=== PATIENT | female | born 1985 | race Caucasian/White ===

== ENCOUNTER → 2019-08-09 | Outpatient (REF) | payer OTHER ==
[2019-08-09 13:12] LABS: BASO % 0.7 % (0.0-1.0); EOS # 0.2 10^3/uL (0.0-0.5); HEMATOCRIT 35.5 % (36.0-47.0); HEMOGLOBIN 11.9 g/dl (12.0-15.5); LYMPH # 1.2 10^3/uL (1.5-5.0); LYMPH % 20.5 % (24.0-44.0); MEAN CORPUSCULAR HEMOGLOBIN 29.5 pg (27.0-33.0); MEAN CORPUSCULAR HGB CONC 33.5 g/dl (32.0-36.5); MEAN CORPUSCULAR VOLUME 88.1 fl (80.0-96.0); MONO # 0.4 10^3/uL (0.0-0.8); MONO % 7.7 % (0.0-5.0); NEUTROPHILS # 3.8 10^3/uL (1.5-8.5); NEUTROPHILS % 67.9 % (36.0-66.0); PLATELET COUNT, AUTOMATED 205 10^3/uL (150-450); RED BLOOD COUNT 4.03 10^6/uL (4.00-5.40); WHITE BLOOD COUNT 5.6 10^3/uL (4.0-10.0)
[2019-08-09 13:34] LABS: TOTAL PROTEIN,RANDOM URINE 19.6 MG/DL (0.0-12.0)
[2019-08-09 13:36] LABS: ALBUMIN 4.2 GM/DL (3.2-5.2); ALT/SGPT 35 U/L (12-78); BILIRUBIN,TOTAL 0.4 MG/DL (0.2-1.0); BLOOD UREA NITROGEN 15 MG/DL (7-18); C REACTIVE PROTEIN QUANTITATIV < 0.30 MG/DL (0.00-0.30); CALCIUM LEVEL 8.7 MG/DL (8.5-10.1); CARBON DIOXIDE LEVEL 30 MEQ/L (21-32); CHLORIDE LEVEL 106 MEQ/L (98-107); COMPLEMENT C3 83 MG/DL (90-180); COMPLEMENT C4 18 MG/DL (10-40); CREATININE FOR GFR 0.71 MG/DL (0.55-1.30); GLOMERULAR FILTRATION RATE > 60.0 (>60); GLUCOSE, FASTING 77 MG/DL (70-100); POTASSIUM SERUM 4.3 MEQ/L (3.5-5.1); SODIUM LEVEL 140 MEQ/L (136-145); TOTAL PROTEIN 7.2 GM/DL (6.4-8.2)
[2019-08-09 13:58] LABS: ERYTHROCYTE SEDIMENTATION RATE 10 mm/hr (0-20)
== END ==
LOC: M SFHCRHEU 11:19
PROVIDERS: ATTEND Internal Medicine
DX: M32.14 Glomerular disease in systemic lupus erythematosus (principal)

== ENCOUNTER → 2020-08-01 | Outpatient (REF) | payer OTHER ==
[2020-08-01 13:30] LABS: BASO # 0.1 10^3/uL (0.0-0.2); BASO % 1.3 % (0.0-1.0); EOS # 0.2 10^3/uL (0.0-0.5); EOS % 5.9 % (0.0-3.0); HEMATOCRIT 37.9 % (36.0-47.0); HEMOGLOBIN 12.4 g/dl (12.0-15.5); LYMPH # 1.6 10^3/uL (1.5-5.0); LYMPH % 41.7 % (24.0-44.0); MEAN CORPUSCULAR HEMOGLOBIN 28.6 pg (27.0-33.0); MEAN CORPUSCULAR HGB CONC 32.7 g/dl (32.0-36.5); MEAN CORPUSCULAR VOLUME 87.3 fl (80.0-96.0); MONO # 0.5 10^3/uL (0.0-0.8); MONO % 12.8 % (2.0-8.0); NEUTROPHILS # 1.5 10^3/uL (1.5-8.5); PLATELET COUNT, AUTOMATED 245 10^3/uL (150-450); RED BLOOD COUNT 4.34 10^6/uL (4.00-5.40); WHITE BLOOD COUNT 3.9 10^3/uL (4.0-10.0)
[2020-08-01 13:59] LABS: CREATININE,RANDOM URINE 38.5 MG/DL; TOTAL PROTEIN,RANDOM URINE 9.7 MG/DL (0.0-12.0)
[2020-08-01 14:00] LABS: ALBUMIN 4.2 GM/DL (3.2-5.2); ALT/SGPT 32 U/L (12-78); BILIRUBIN,TOTAL 0.4 MG/DL (0.2-1.0); BLOOD UREA NITROGEN 14 MG/DL (7-18); CALCIUM LEVEL 8.7 MG/DL (8.5-10.1); CARBON DIOXIDE LEVEL 29 MEQ/L (21-32); CHLORIDE LEVEL 104 MEQ/L (98-107); COMPLEMENT C3 82 MG/DL (90-180); COMPLEMENT C4 17 MG/DL (10-40); CREATININE FOR GFR 0.96 MG/DL (0.55-1.30); GLOMERULAR FILTRATION RATE > 60.0 (>60); GLUCOSE, FASTING 80 MG/DL (70-100); POTASSIUM SERUM 4.1 MEQ/L (3.5-5.1); RHEUMATOID FACTOR QUANT < 10.0 IU/ML (<15.0); SODIUM LEVEL 139 MEQ/L (136-145); TOTAL PROTEIN 7.3 GM/DL (6.4-8.2)
[2020-08-01 14:19] LABS: HEPATITIS B SURFACE ANTIGEN NEGATIVE (NEGATIVE)
[2020-08-01 14:35] LABS: ERYTHROCYTE SEDIMENTATION RATE 12 mm/hr (0-20)
[2020-08-01 14:48] LABS: HEPATITIS C VIRUS ABY INDEX 0.1 INDEX (<0.8)
[2020-08-03 00:08] LABS: CYCLIC CITRULLINATED PEPTIDE 6 units (0-19); HEPATITIS B CORE ANTIBODY IGG Negative (Negative)
== END ==
LOC: M SFHCRHEU 11:32
PROVIDERS: ATTEND Internal Medicine
DX: M06.4 Inflammatory polyarthropathy (principal); M32.14 Glomerular disease in systemic lupus erythematosus

== ENCOUNTER → 2020-11-25 | Outpatient (REF) | payer OTHER | LOC: M SFHCRHEU 11:52 | PROVIDERS: ATTEND Internal Medicine | DX: M32.14 Glomerular disease in systemic lupus erythematosus (principal) ==

== ENCOUNTER → 2020-12-03 | Outpatient (CLI) | payer OTHER ==
--- NOTE | 2020-12-05 16:10 | SLEEPHOME ---
DATE: 12/03/2020 ORDERED BY: Amalia Mcdermott MD Diagnostic home sleep testing was performed due to concern for the obstructive sleep apnea syndrome. For testing, a nocturnal T3 respiratory monitoring device was used. Continuous record was made of pulse, oxygen saturation, air flow, chest and abdominal strain, and body position. Eleven hours and 59 minutes of data were reviewed. There were 7 hours and 39 minutes marked as time in bed. During the interval marked time in bed, there were 46 respiratory events identified of 10 seconds in duration or greater for a respiratory event index of 6. The events were primarily obstructive hypopneas and were associated primarily with the supine posture. Baseline pulse rate was 81 beats per minute. Pulse rate ranged 66 to 102. Baseline saturation was 95%. Saturations fell to 92%. Testing was performed in both the supine and nonsupine positions. IMPRESSION: Abnormal home sleep testing with repetitive respiratory events and oxygen desaturations to 92% with a respiratory event index of 6 is consistent with mild positional obstructive sleep apnea syndrome. RECOMMENDATION: Sleep position retraining for avoidance of the supine posture is recommended. Should the patient's symptoms persist, referral for a formal sleep evaluation would be reasonable.
== END ==
LOC: M SLEEP HO 11:27
PROVIDERS: ATTEND Internal Medicine
DX: R53.83 Other fatigue (principal)

== ENCOUNTER → 2021-05-22 | Outpatient (REF) | payer OTHER ==
[2021-05-22 16:16] LABS: APPEARANCE, URINE HAZY (CLEAR); BACTERIA, URINE AUTO 2+ (NEGATIVE); BILIRUBIN, URINE AUTO NEGATIVE (NEGATIVE); BLOOD, URINE BLOOD NEGATIVE (NEGATIVE); COLOR, URINE STRAW (YELLOW); GLUCOSE, URINE (UA) AUTO NEGATIVE (NEGATIVE); KETONE, URINE AUTO NEGATIVE (NEGATIVE); LEUKOCYTE ESTERASE, URINE AUTO NEGATIVE (NEGATIVE); MUCUS, URINE SMALL (NEGATIVE); NITRITE, URINE AUTO NEGATIVE (NEGATIVE); PROTEIN, URINE AUTO NEGATIVE (NEGATIVE); RBC, URINE AUTO 1 /HPF (0-3); SPECIFIC GRAVITY URINE AUTO 1.003 (1.002-1.035); SQUAMOUS EPITHELIAL CELL UR AU 3 /HPF (0-6); UROBILINOGEN, URINE AUTO 0.2 mg/dL (0.0-2.0); WBC, URINE AUTO 3 /HPF (0-3)
[2021-05-22 16:50] LABS: COMPLEMENT C3 95 MG/DL (90-180); COMPLEMENT C4 21 MG/DL (10-40)
[2021-05-22 16:54] LABS: CREATININE,RANDOM URINE < 13.0 MG/DL; TOTAL PROTEIN,RANDOM URINE < 5.0 MG/DL (0.0-12.0)
== END ==
LOC: M SFHCRHEU 12:12
PROVIDERS: ATTEND Internal Medicine
DX: M06.4 Inflammatory polyarthropathy (principal); M32.14 Glomerular disease in systemic lupus erythematosus

== ENCOUNTER → 2022-12-02 | Outpatient (CLI) | payer OTHER ==
[~2022-12-02] VITALS: Ht 177.8 cm; Wt 112.5 kg
[~2022-12-02] MED LIST: ACETAMINOPHEN 650MG ER TAB (TYLENOL ARTHRITIS) PO ONE; ALBUTEROL SULFATE 2.5MG/0.5ML INH NEB SOLN INH PRN; BELIMUMAB IV ONE; EPINEPHrine INJ 1 MG/ML 1ML AMP IM PRN; NS IV ONE; diphenhydrAMINE 50MG CAP PO ONE; diphenhydrAMINE 50MG/ML VIAL IV PRN; methylPREDNISolone 125MG 2ML VIAL IV PRN
[2022-12-02 15:26] VITALS: BP 120/70; O2SAT 99
[2022-12-02 17:34] VITALS: BP 134/76; O2SAT 99
== END ==
LOC: M INFU 14:56
PROVIDERS: ATTEND Internal Medicine
DX: M32.14 Glomerular disease in systemic lupus erythematosus (principal); Z88.0 Allergy status to penicillin; Z88.2 Allergy status to sulfonamides; Z88.8 Allergy status to other drugs, medicaments and biological substances
CPT/HCPCS: 96365; J0490

== ENCOUNTER 2022-12-16 15:30 | Outpatient (CLI) | payer OTHER ==
[~2022-12-16] VITALS: Ht 177.8 cm; Wt 112.5 kg
[2022-12-16 15:30] VITALS: BP 138/85; O2SAT 97
[~2022-12-16 15:30] MED LIST changes: -diphenhydrAMINE 50MG CAP PO ONE
[2022-12-16] MEDS: diphenhydrAMINE 25MG CAP PO ONE ×2 (15:30→15:31)
[2022-12-16 17:38] VITALS: BP 136/75; O2SAT 20
== END 2022-12-16 17:45 | disposition home or self-care (01) ==
LOC: M INFU 15:30
PROVIDERS: ATTEND Internal Medicine
DX: M32.14 Glomerular disease in systemic lupus erythematosus (principal); Z88.0 Allergy status to penicillin; Z88.2 Allergy status to sulfonamides; Z88.8 Allergy status to other drugs, medicaments and biological substances
CPT/HCPCS: 96365; J0490

== ENCOUNTER 2023-02-10 14:45 | Outpatient (CLI) | payer OTHER ==
[~2023-02-10] VITALS: Ht 177.8 cm; Wt 115.9 kg
[~2023-02-10 14:45] MED LIST changes: -ACETAMINOPHEN 650MG ER TAB (TYLENOL ARTHRITIS) PO ONE; -BELIMUMAB IV ONE; -NS IV ONE
[2023-02-10 14:50] VITALS: BP 130/72; O2SAT 99
[2023-02-10] MEDS ORDERED: diphenhydrAMINE 50MG CAP PO ONE (15:30)
[2023-02-10] MEDS ORDERED: BELIMUMAB IV ONE (15:30)
[2023-02-10] MEDS ORDERED: NS IV ONE (15:30)
[2023-02-10] MEDS ORDERED: ACETAMINOPHEN 650MG ER TAB (TYLENOL ARTHRITIS) PO ONE (15:30)
[2023-02-10 16:08] LABS: BASO # 0.1 10^3/uL (0.0-0.2); BASO % 0.8 % (0.0-1.0); EOS # 0.2 10^3/uL (0.0-0.5); EOS % 2.8 % (0.0-3.0); HEMATOCRIT 37.6 % (36.0-47.0); HEMOGLOBIN 12.4 g/dl (12.0-15.5); LYMPH # 1.7 10^3/uL (1.5-5.0); LYMPH % 26.7 % (24.0-44.0); MEAN CORPUSCULAR VOLUME 84.9 fl (80.0-96.0); MONO # 0.7 10^3/uL (0.0-0.8); MONO % 10.3 % (2.0-8.0); NEUTROPHILS # 3.8 10^3/uL (1.5-8.5); NEUTROPHILS % 59.1 % (36.0-66.0); PLATELET COUNT, AUTOMATED 238 10^3/uL (150-450); RED BLOOD COUNT 4.43 10^6/uL (4.00-5.40); WHITE BLOOD COUNT 6.4 10^3/uL (4.0-10.0)
[2023-02-10 16:24] LABS: ERYTHROCYTE SEDIMENTATION RATE 8 mm/hr (0-20)
[2023-02-10 16:32] LABS: ALBUMIN 3.7 G/DL (3.2-5.2); ALKALINE PHOSPHATASE 82 U/L (46-116); ALT/SGPT 18 U/L (7.0-40); AST/SGOT 15 U/L (<34); BILIRUBIN,DIRECT < 0.1 MG/DL (<0.4); BILIRUBIN,TOTAL 0.3 MG/DL (0.3-1.2); BLOOD UREA NITROGEN 12 MG/DL (9-23); C REACTIVE PROTEIN QUANTITATIV < 0.40 MG/DL (<1.0); CALCIUM LEVEL 8.8 MG/DL (8.5-10.1); CARBON DIOXIDE LEVEL 26 MMOL/L (20-31); CHLORIDE LEVEL 108 MMOL/L (98-107); CREATININE FOR GFR 0.82 MG/DL (0.55-1.30); GLOMERULAR FILTRATION RATE > 60.0 (>60); GLUCOSE, FASTING 121 MG/DL (60-100); POTASSIUM SERUM 3.8 MMOL/L (3.5-5.1); SODIUM LEVEL 142 MMOL/L (136-145); TOTAL PROTEIN 6.7 G/DL (5.7-8.2)
[2023-02-10 17:05] VITALS: BP 135/92; O2SAT 99
== END 2023-02-10 17:05 ==
LOC: M INFU 14:45
PROVIDERS: ATTEND Internal Medicine
DX: M32.14 Glomerular disease in systemic lupus erythematosus (principal); Z88.0 Allergy status to penicillin; Z88.2 Allergy status to sulfonamides; Z88.8 Allergy status to other drugs, medicaments and biological substances
CPT/HCPCS: 80048; 80076; 85025; 85652; 86140; 96365; 96366; J0490

== ENCOUNTER 2023-04-08 15:29 | Outpatient (CLI) | payer OTHER ==
[~2023-04-08] VITALS: Ht 177.8 cm; Wt 112.2 kg
[2023-04-08 16:05] VITALS: BP 120/74; O2SAT 99
[2023-04-08] MEDS ORDERED: ACETAMINOPHEN TAB 650MG DOSE (2X325MG) PO ONE (16:30)
[2023-04-08] MEDS ORDERED: diphenhydrAMINE 50MG CAP PO ONE (16:30)
[2023-04-08] MEDS ORDERED: NS IV ONE (17:00)
[2023-04-08] MEDS ORDERED: BELIMUMAB IV ONE (17:00)
[2023-04-08 17:02] LABS: BASO # 0.1 10^3/uL (0.0-0.2); EOS # 0.2 10^3/uL (0.0-0.5); EOS % 3.7 % (0.0-3.0); HEMATOCRIT 39.9 % (36.0-47.0); HEMOGLOBIN 13.9 g/dl (12.0-15.5); LYMPH # 1.7 10^3/uL (1.5-5.0); LYMPH % 26.4 % (24.0-44.0); MEAN CORPUSCULAR HEMOGLOBIN 30.1 pg (27.0-33.0); MEAN CORPUSCULAR HGB CONC 34.8 g/dl (32.0-36.5); MEAN CORPUSCULAR VOLUME 86.4 fl (80.0-96.0); MONO # 0.7 10^3/uL (0.0-0.8); NEUTROPHILS # 3.6 10^3/uL (1.5-8.5); NEUTROPHILS % 57.4 % (36.0-66.0); PLATELET COUNT, AUTOMATED 262 10^3/uL (150-450); RED BLOOD COUNT 4.62 10^6/uL (4.00-5.40); WHITE BLOOD COUNT 6.3 10^3/uL (4.0-10.0)
[2023-04-08 17:17] LABS: C REACTIVE PROTEIN QUANTITATIV < 0.40 MG/DL (<1.0)
[2023-04-08 17:18] LABS: ALBUMIN 4.2 G/DL (3.2-5.2); ALKALINE PHOSPHATASE 87 U/L (46-116); ALT/SGPT 16 U/L (7.0-40); AST/SGOT 17 U/L (<34); BILIRUBIN,DIRECT 0.2 MG/DL (<0.4); BILIRUBIN,TOTAL 0.5 MG/DL (0.3-1.2); BLOOD UREA NITROGEN 15 MG/DL (9-23); CALCIUM LEVEL 8.9 MG/DL (8.5-10.1); CARBON DIOXIDE LEVEL 28 MMOL/L (20-31); CHLORIDE LEVEL 103 MMOL/L (98-107); CREATININE FOR GFR 0.83 MG/DL (0.55-1.30); GLOMERULAR FILTRATION RATE > 60.0 (>60); GLUCOSE, FASTING 82 MG/DL (60-100); SODIUM LEVEL 139 MMOL/L (136-145); TOTAL PROTEIN 7.4 G/DL (5.7-8.2)
[2023-04-08 17:36] LABS: ERYTHROCYTE SEDIMENTATION RATE 13 mm/hr (0-20)
[2023-04-08 18:29] VITALS: BP 134/89; O2SAT 99
== END 2023-04-08 18:29 ==
LOC: M INFU 15:29
PROVIDERS: ATTEND Internal Medicine
DX: M32.14 Glomerular disease in systemic lupus erythematosus (principal); Z88.0 Allergy status to penicillin; Z88.2 Allergy status to sulfonamides; Z91.030 Bee allergy status
CPT/HCPCS: 36592; 80048; 80076; 85025; 85652; 86140; 96365; J0490

== ENCOUNTER 2023-05-18 15:35 | Outpatient (CLI) | payer OTHER ==
[2023-05-18 15:35] VITALS: BP 128/80; O2SAT 98
[~2023-05-18 15:35] MED LIST changes: +ACETAMINOPHEN TAB 650MG DOSE (2X325MG) PO ONE; +BELIMUMAB IV ONE; +NS IV ONE; +diphenhydrAMINE 50MG CAP PO ONE
[2023-05-18 17:50] VITALS: BP 135/85; O2SAT 100
== END 2023-05-18 17:50 | disposition home or self-care (01) ==
LOC: M INFU 15:35
PROVIDERS: ATTEND Internal Medicine
DX: M32.14 Glomerular disease in systemic lupus erythematosus (principal); Z88.0 Allergy status to penicillin; Z88.2 Allergy status to sulfonamides; Z88.8 Allergy status to other drugs, medicaments and biological substances
CPT/HCPCS: 96365; J0490

== ENCOUNTER 2023-06-15 16:26 | Outpatient (CLI) | payer OTHER ==
[~2023-06-15] VITALS: Ht 177.8 cm; Wt 115.0 kg
[~2023-06-15 16:26] MED LIST changes: -BELIMUMAB IV ONE; -NS IV ONE
[2023-06-15] MEDS ORDERED: BELIMUMAB IV ONE (16:30)
[2023-06-15] MEDS ORDERED: NS IV ONE (16:30)
[2023-06-15 16:48] VITALS: BP 130/87; O2SAT 99
[2023-06-15 17:47] VITALS: BP 141/96; O2SAT 99
== END 2023-06-15 17:49 | disposition home or self-care (01) ==
LOC: M INFU 16:26
PROVIDERS: ATTEND Internal Medicine
DX: M32.14 Glomerular disease in systemic lupus erythematosus (principal); Z88.0 Allergy status to penicillin; Z88.1 Allergy status to other antibiotic agents; Z88.2 Allergy status to sulfonamides; Z91.030 Bee allergy status
CPT/HCPCS: 96365; J0490

== ENCOUNTER 2023-06-22 18:54 | Emergency (ER) | payer OTHER ==
[~2023-06-22] VITALS: Ht 177.8 cm; Wt 117.3 kg
[2023-06-22 20:58] VITALS: BP 132/77; TEMP 98.2; O2SAT 97
== END 2023-06-22 21:05 | disposition home or self-care (01) ==
LOC: M ED 18:54
DX: S80.11XA Contusion of right lower leg, initial encounter (principal); Y92.9 Unspecified place or not applicable; Y93.9 Activity, unspecified; Y99.9 Unspecified external cause status; F32.A Depression, unspecified; F41.9 Anxiety disorder, unspecified; F43.10 Post-traumatic stress disorder, unspecified; F10.10 Alcohol abuse, uncomplicated; Z88.0 Allergy status to penicillin; Z88.2 Allergy status to sulfonamides; Z91.030 Bee allergy status

== ENCOUNTER 2023-07-13 15:30 | Outpatient (CLI) | payer OTHER ==
[~2023-07-13] VITALS: Ht 177.8 cm; Wt 113.0 kg
[~2023-07-13 15:30] MED LIST changes: +BELIMUMAB in NS 250 ML OVER 1 HOUR IV ONE; +diphenhydrAMINE 25MG CAP PO ONE; -diphenhydrAMINE 50MG CAP PO ONE
[2023-07-13 15:50] VITALS: BP 136/91; TEMP 97.8; O2SAT 95
[2023-07-13 16:09] LABS: BASO # 0.1 10^3/uL (0.0-0.2); BASO % 0.7 % (0.0-1.0); EOS # 0.2 10^3/uL (0.0-0.5); EOS % 2.5 % (0.0-3.0); HEMATOCRIT 37.2 % (36.0-47.0); HEMOGLOBIN 12.4 g/dl (12.0-15.5); LYMPH # 1.7 10^3/uL (1.5-5.0); LYMPH % 24.7 % (24.0-44.0); MEAN CORPUSCULAR HEMOGLOBIN 29.5 pg (27.0-33.0); MEAN CORPUSCULAR HGB CONC 33.3 g/dl (32.0-36.5); MEAN CORPUSCULAR VOLUME 88.6 fl (80.0-96.0); MONO # 0.5 10^3/uL (0.0-0.8); MONO % 7.6 % (2.0-8.0); NEUTROPHILS # 4.3 10^3/uL (1.5-8.5); NEUTROPHILS % 64.2 % (36.0-66.0); PLATELET COUNT, AUTOMATED 260 10^3/uL (150-450); WHITE BLOOD COUNT 6.7 10^3/uL (4.0-10.0)
[2023-07-13 16:21] LABS: ERYTHROCYTE SEDIMENTATION RATE 10 mm/hr (0-20)
[2023-07-13 17:03] LABS: ALBUMIN 3.7 G/DL (3.2-5.2); ALKALINE PHOSPHATASE 81 U/L (46-116); ALT/SGPT 28 U/L (7.0-40); AST/SGOT 19 U/L (<34); BILIRUBIN,DIRECT 0.1 MG/DL (<0.4); BILIRUBIN,TOTAL 0.4 MG/DL (0.3-1.2); BLOOD UREA NITROGEN 16 MG/DL (9-23); CALCIUM LEVEL 8.9 MG/DL (8.5-10.1); CARBON DIOXIDE LEVEL 29 MMOL/L (20-31); CHLORIDE LEVEL 108 MMOL/L (98-107); CREATININE FOR GFR 0.84 MG/DL (0.55-1.30); GLOMERULAR FILTRATION RATE > 60.0 (>60); GLUCOSE, FASTING 89 MG/DL (60-100); POTASSIUM SERUM 4.2 MMOL/L (3.5-5.1); SODIUM LEVEL 142 MMOL/L (136-145); TOTAL PROTEIN 6.7 G/DL (5.7-8.2)
[2023-07-13 17:33] VITALS: BP 132/90; TEMP 97.1; O2SAT 97
== END 2023-07-13 17:32 ==
LOC: M INFU 15:30
PROVIDERS: ATTEND Internal Medicine
DX: M32.14 Glomerular disease in systemic lupus erythematosus (principal); Z88.0 Allergy status to penicillin; Z88.2 Allergy status to sulfonamides; Z88.8 Allergy status to other drugs, medicaments and biological substances
CPT/HCPCS: 80048; 80076; 85025; 85652; 86140; 96365; J0490

== ENCOUNTER 2023-08-10 15:58 | Outpatient (CLI) | payer OTHER ==
[~2023-08-10] VITALS: Ht 177.8 cm; Wt 113.0 kg
[~2023-08-10 15:58] MED LIST changes: -ACETAMINOPHEN TAB 650MG DOSE (2X325MG) PO ONE; -BELIMUMAB in NS 250 ML OVER 1 HOUR IV ONE; -diphenhydrAMINE 25MG CAP PO ONE
[2023-08-10 16:02] VITALS: BP 145/71; TEMP 97.5; O2SAT 96
[2023-08-10] MEDS: diphenhydrAMINE 25MG CAP PO ONE (16:07)
[2023-08-10] MEDS: ACETAMINOPHEN TAB 650MG DOSE (2X325MG) PO ONE (16:07)
[2023-08-10] MEDS: BELIMUMAB in NS 250 ML OVER 1 HOUR IV ONE (16:45)
[2023-08-10 17:50] VITALS: BP 140/81; O2SAT 97
== END 2023-08-10 18:00 | disposition home or self-care (01) ==
LOC: M INFU 15:58
PROVIDERS: ATTEND Internal Medicine
DX: M32.14 Glomerular disease in systemic lupus erythematosus (principal); Z88.0 Allergy status to penicillin; Z88.2 Allergy status to sulfonamides; Z88.8 Allergy status to other drugs, medicaments and biological substances
CPT/HCPCS: 96365; J0490

== ENCOUNTER 2023-09-21 15:00 | Outpatient (CLI) | payer OTHER ==
[~2023-09-21] VITALS: Ht 177.8 cm; Wt 114.7 kg
[2023-09-21 15:13] VITALS: BP 124/75; O2SAT 96
[2023-09-21] MEDS ORDERED: ACETAMINOPHEN 650MG PO PRIOR TO INFUSION PO ONE (15:30)
[2023-09-21] MEDS ORDERED: diphenhydrAMINE 50MG PO PRIOR TO INFUSION PO ONE (15:30)
[2023-09-21] MEDS: BELIMUMAB IV ONE (16:23)
[2023-09-21] MEDS: NS IV ONE (16:23)
[2023-09-21 17:21] VITALS: BP 117/77; O2SAT 100
== END 2023-09-21 17:30 | disposition home or self-care (01) ==
LOC: M INFU 15:00
PROVIDERS: ATTEND Internal Medicine
DX: M32.14 Glomerular disease in systemic lupus erythematosus (principal)
CPT/HCPCS: 96365; J0490

== ENCOUNTER 2023-10-20 16:00 | Outpatient (CLI) | payer OTHER ==
[~2023-10-20] VITALS: Ht 177.8 cm; Wt 118.0 kg
[2023-10-20 16:00] VITALS: BP 158/83; O2SAT 100
[2023-10-20] MEDS: ACETAMINOPHEN 650MG PO PRIOR TO INFUSION PO ONE (16:42)
[2023-10-20] MEDS: diphenhydrAMINE 50MG PO PRIOR TO INFUSION PO ONE (16:42)
[2023-10-20] MEDS: NS IV ONE (16:48)
[2023-10-20] MEDS: BELIMUMAB IV ONE (16:48)
[2023-10-20 18:00] VITALS: BP 140/64; O2SAT 99
== END 2023-10-20 18:00 ==
LOC: M INFU 16:00
PROVIDERS: ATTEND Internal Medicine
DX: M32.14 Glomerular disease in systemic lupus erythematosus (principal); Z88.0 Allergy status to penicillin; Z88.1 Allergy status to other antibiotic agents; Z88.2 Allergy status to sulfonamides; Z91.030 Bee allergy status
CPT/HCPCS: 96365; J0490

== ENCOUNTER 2023-12-08 12:02 | Outpatient (CLI) | payer OTHER ==
[~2023-12-08] VITALS: Ht 177.8 cm; Wt 107.3 kg
[2023-12-08 12:20] VITALS: BP 139/84; O2SAT 99
[2023-12-08] MEDS: BELIMUMAB IV ONE (13:25)
[2023-12-08] MEDS: NS IV ONE (13:25)
[2023-12-08] MEDS: ACETAMINOPHEN 650MG PO PRIOR TO INFUSION PO ONE (13:27)
[2023-12-08] MEDS: diphenhydrAMINE 50MG PO PRIOR TO INFUSION PO ONE (13:27)
[2023-12-08 14:30] VITALS: BP 129/73; O2SAT 100
== END 2023-12-08 14:30 | disposition home or self-care (01) ==
LOC: M INFU 12:02
PROVIDERS: ATTEND Internal Medicine
DX: M32.14 Glomerular disease in systemic lupus erythematosus (principal); Z88.0 Allergy status to penicillin; Z88.2 Allergy status to sulfonamides; Z88.8 Allergy status to other drugs, medicaments and biological substances; Z91.030 Bee allergy status
CPT/HCPCS: 96365; J0490

== ENCOUNTER → 2023-12-23 | Outpatient (REF) | payer OTHER ==
[2023-12-23 17:13] LABS: BASO # 0.1 10^3/uL (0.0-0.2); BASO % 1.2 % (0.0-1.0); EOS # 0.1 10^3/uL (0.0-0.5); EOS % 2.5 % (0.0-3.0); HEMATOCRIT 42.2 % (36.0-47.0); HEMOGLOBIN 13.6 g/dl (12.0-15.5); LYMPH # 1.7 10^3/uL (1.5-5.0); LYMPH % 30.6 % (24.0-44.0); MEAN CORPUSCULAR HEMOGLOBIN 28.8 pg (27.0-33.0); MEAN CORPUSCULAR HGB CONC 32.2 g/dl (32.0-36.5); MEAN CORPUSCULAR VOLUME 89.2 fl (80.0-96.0); MONO # 0.6 10^3/uL (0.0-0.8); MONO % 11.3 % (2.0-8.0); NEUTROPHILS # 3.1 10^3/uL (1.5-8.5); NEUTROPHILS % 54.4 % (36.0-66.0); PLATELET COUNT, AUTOMATED 281 10^3/uL (150-450); RED BLOOD COUNT 4.73 10^6/uL (4.00-5.40); WHITE BLOOD COUNT 5.7 10^3/uL (4.0-10.0)
[2023-12-23 17:23] LABS: ERYTHROCYTE SEDIMENTATION RATE 10 mm/hr (0-20)
[2023-12-23 17:32] LABS: C REACTIVE PROTEIN QUANTITATIV < 0.40 MG/DL (<1.0)
[2023-12-23 17:33] LABS: ALBUMIN 4.3 G/DL (3.2-5.2); ALKALINE PHOSPHATASE 87 U/L (46-116); ALT/SGPT 19 U/L (7.0-40); AST/SGOT 13 U/L (<34); BILIRUBIN,DIRECT 0.3 MG/DL (<0.4); BILIRUBIN,TOTAL 0.8 MG/DL (0.3-1.2); BLOOD UREA NITROGEN 16 MG/DL (9-23); CALCIUM LEVEL 9.8 MG/DL (8.5-10.1); CARBON DIOXIDE LEVEL 28 MMOL/L (20-31); CHLORIDE LEVEL 108 MMOL/L (98-107); CREATININE FOR GFR 0.92 MG/DL (0.55-1.30); GLOMERULAR FILTRATION RATE > 60.0 (>60); GLUCOSE, FASTING 83 MG/DL (60-100); SODIUM LEVEL 145 MMOL/L (136-145); TOTAL PROTEIN 7.3 G/DL (5.7-8.2)
== END ==
LOC: M SFHCRHEU 14:21
PROVIDERS: ATTEND Internal Medicine
DX: M32.14 Glomerular disease in systemic lupus erythematosus (principal)

== ENCOUNTER 2024-01-05 13:24 | Outpatient (CLI) | payer OTHER ==
[~2024-01-05] VITALS: Ht 177.8 cm; Wt 117.0 kg
[2024-01-05] MEDS: diphenhydrAMINE 50MG PO PRIOR TO INFUSION PO ONE (13:30)
[2024-01-05] MEDS ORDERED: BELIMUMAB IV ONE (13:30)
[2024-01-05] MEDS ORDERED: NS IV ONE (13:30)
[2024-01-05] MEDS: ACETAMINOPHEN 650MG PO PRIOR TO INFUSION PO ONE (13:30)
[2024-01-05] MEDS: NS IV ONE (14:27)
[2024-01-05] MEDS: BELIMUMAB IV ONE (14:27)
[2024-01-05 15:35] VITALS: BP 139/74; O2SAT 100
== END 2024-01-05 16:00 ==
LOC: M INFU 13:24
PROVIDERS: ATTEND Internal Medicine
DX: M32.14 Glomerular disease in systemic lupus erythematosus (principal); Z88.0 Allergy status to penicillin; Z88.2 Allergy status to sulfonamides; Z91.030 Bee allergy status
CPT/HCPCS: 96365; J0490

== ENCOUNTER 2024-02-08 09:52 | Outpatient (CLI) | payer OTHER ==
[~2024-02-08] VITALS: Ht 177.8 cm; Wt 117.0 kg
[2024-02-08 10:05] VITALS: BP 136/70; O2SAT 97
[2024-02-08] MEDS: NS IV ONE (10:37)
[2024-02-08] MEDS: BELIMUMAB IV ONE (10:37)
[2024-02-08] MEDS: diphenhydrAMINE 50MG PO PRIOR TO INFUSION PO ONE (10:38)
[2024-02-08] MEDS: ACETAMINOPHEN 650MG PO PRIOR TO INFUSION PO ONE (10:38)
[2024-02-08 11:40] VITALS: BP 129/80; O2SAT 100
== END 2024-02-08 11:40 ==
LOC: M INFU 09:52
PROVIDERS: ATTEND Internal Medicine
DX: M32.14 Glomerular disease in systemic lupus erythematosus (principal); Z88.0 Allergy status to penicillin; Z88.1 Allergy status to other antibiotic agents; Z88.2 Allergy status to sulfonamides; Z91.030 Bee allergy status
CPT/HCPCS: 96365; J0490

== ENCOUNTER 2024-03-07 15:35 | Outpatient (CLI) | payer OTHER ==
[~2024-03-07] VITALS: Ht 177.8 cm; Wt 99.0 kg
[2024-03-07 15:30] VITALS: BP 119/75; O2SAT 100
[2024-03-07] MEDS: NS IV ONE (16:53)
[2024-03-07] MEDS: BELIMUMAB IV ONE (16:53)
[2024-03-07] MEDS: diphenhydrAMINE 50MG PO PRIOR TO INFUSION PO ONE (16:54)
[2024-03-07] MEDS: ACETAMINOPHEN 650MG PO PRIOR TO INFUSION PO ONE (16:54)
[2024-03-07 18:10] VITALS: BP 128/62; O2SAT 99
== END 2024-03-07 18:10 ==
LOC: M INFU 15:35
PROVIDERS: ATTEND Internal Medicine
DX: M32.14 Glomerular disease in systemic lupus erythematosus (principal); Z88.0 Allergy status to penicillin; Z88.2 Allergy status to sulfonamides; Z88.8 Allergy status to other drugs, medicaments and biological substances; Z91.030 Bee allergy status
CPT/HCPCS: 96365; J0490

== ENCOUNTER 2024-04-21 16:10 | Outpatient (CLI) | payer OTHER ==
[~2024-04-21] VITALS: Ht 177.8 cm; Wt 97.2 kg
[2024-04-21 16:10] VITALS: BP 121/76; O2SAT 99
[~2024-04-21 16:10] MED LIST changes: +ACETAMINOPHEN 650MG PO PRIOR TO INFUSION PO ONE; +diphenhydrAMINE 50MG PO PRIOR TO INFUSION PO ONE
[2024-04-21] MEDS: NS IV ONE (17:32)
[2024-04-21] MEDS: BELIMUMAB IV ONE (17:32)
[2024-04-21 18:24] VITALS: BP 152/90; O2SAT 100
[2024-04-21 18:35] VITALS: BP 152/90; TEMP 36.4; O2SAT 100
== END 2024-04-21 18:30 ==
LOC: M INFU 16:10
PROVIDERS: ATTEND Internal Medicine
DX: M32.14 Glomerular disease in systemic lupus erythematosus (principal); Z88.0 Allergy status to penicillin; Z88.2 Allergy status to sulfonamides; Z88.8 Allergy status to other drugs, medicaments and biological substances; Z91.030 Bee allergy status
CPT/HCPCS: 96365; J0490

== ENCOUNTER 2024-05-19 16:00 | Outpatient (CLI) | payer OTHER ==
[~2024-05-19] VITALS: Ht 177.8 cm; Wt 94.5 kg
[~2024-05-19 16:00] MED LIST changes: -ACETAMINOPHEN 650MG PO PRIOR TO INFUSION PO ONE; +NS 1,000 ML IV SCH; -diphenhydrAMINE 50MG PO PRIOR TO INFUSION PO ONE
[2024-05-19 16:02] VITALS: BP 132/74; O2SAT 96
[2024-05-19] MEDS: diphenhydrAMINE 50MG PO PRIOR TO INFUSION PO ONE (16:28)
[2024-05-19] MEDS: ACETAMINOPHEN 650MG PO PRIOR TO INFUSION PO ONE (16:28)
[2024-05-19] MEDS: BELIMUMAB IV ONE (16:30)
[2024-05-19] MEDS: NS IV ONE (16:30)
[2024-05-19 17:45] VITALS: BP 123/71; O2SAT 100
== END 2024-05-19 17:50 ==
LOC: M INFU 16:00
PROVIDERS: ATTEND Internal Medicine
DX: M32.14 Glomerular disease in systemic lupus erythematosus (principal); Z88.0 Allergy status to penicillin; Z88.2 Allergy status to sulfonamides; Z88.8 Allergy status to other drugs, medicaments and biological substances; Z91.030 Bee allergy status
CPT/HCPCS: 96365; J0490

== ENCOUNTER 2024-07-03 10:55 | Outpatient (CLI) | payer OTHER ==
[~2024-07-03] VITALS: Ht 177.8 cm; Wt 92.0 kg
[~2024-07-03 10:55] MED LIST changes: +ACETAMINOPHEN 650MG PO PRIOR TO INFUSION PO ONE; +BELIMUMAB IV ONE; -NS 1,000 ML IV SCH; +NS IV ONE; +diphenhydrAMINE 50MG PO PRIOR TO INFUSION PO ONE
[2024-07-03 11:00] VITALS: BP 117/60; O2SAT 100
[2024-07-03] MEDS ORDERED: ACETAMINOPHEN 650 MG PO ONE (11:00)
[2024-07-03] MEDS ORDERED: diphenhydrAMINE 25MG CAP PO ONE (11:00)
[2024-07-03] MEDS: NS IV ONE (12:33)
[2024-07-03] MEDS: BELIMUMAB IV ONE (12:33)
[2024-07-03 13:40] VITALS: BP 126/77; O2SAT 99
== END 2024-07-03 13:45 ==
LOC: M INFU 10:55
PROVIDERS: ATTEND Internal Medicine
DX: M32.14 Glomerular disease in systemic lupus erythematosus (principal); Z88.0 Allergy status to penicillin; Z88.2 Allergy status to sulfonamides; Z88.8 Allergy status to other drugs, medicaments and biological substances; Z91.030 Bee allergy status
CPT/HCPCS: 96365; J0490

== ENCOUNTER 2025-06-10 07:06 | Emergency (ER) | payer BC ==
[~2025-06-10] VITALS: Ht 177.8 cm; Wt 71.2 kg
[2025-06-10] MEDS ORDERED: HYDR200T46 (07:17)
[2025-06-10] MEDS ORDERED: BUSP5TA (07:17)
[2025-06-10] MEDS ORDERED: DULO1CAP6 (07:17)
[2025-06-10] MEDS ORDERED: TIRZ12.53 (07:17)
[2025-06-10] MEDS: ONDANSETRON 4MG/2ML VIAL IV PRN (11:24)
[2025-06-10] MEDS: ACETAMINOPHEN *IV* 1,000 MG in IV 1 EA IV ONE (11:24)
[2025-06-10] MEDS: NS (Normal Saline) 0.9% 1,000 ML IV ONE (11:24)
[2025-06-10 11:48] LABS: BASO # 0.0 10^3/uL (0.0-0.2); BASO % 1.0 % (0.0-1.0); EOS # 0.0 10^3/uL (0.0-0.5); EOS % 0.3 % (0.0-3.0); LYMPH # 0.5 10^3/uL (1.5-5.0); LYMPH % 16.4 % (24.0-44.0); MONO # 0.7 10^3/uL (0.0-0.8); MONO % 22.3 % (2.0-8.0); NEUTROPHILS # 1.8 10^3/uL (1.5-8.5); NEUTROPHILS % 60.0 % (36.0-66.0); PLATELET COUNT, AUTOMATED 194 10^3/uL (150-450)
[2025-06-10 11:53] VITALS: BP 117/72; TEMP 99.2
[2025-06-10 12:03] LABS: ALT/SGPT 15 U/L (7.0-40); AST/SGOT 19 U/L (<34); CALCIUM LEVEL 8.1 MG/DL (8.5-10.1); CARBON DIOXIDE LEVEL 27 MMOL/L (20-31); CHLORIDE LEVEL 104 MMOL/L (98-107); CK-MB VALUE MASS < 1.0 NG/ML (<3.6); CPK CREATINE PHOSPHOKINASE 59 U/L (34-145); CREATININE FOR GFR 0.81 MG/DL (0.55-1.30); GLOMERULAR FILTRATION RATE > 90.0 (>58); POTASSIUM SERUM 3.8 MMOL/L (3.5-5.1); SODIUM LEVEL 139 MMOL/L (136-145)
[2025-06-10] MEDS: ONDANSETRON 4MG/2ML VIAL IV ONE (12:17)
[2025-06-10] MEDS: MORPHINE 4 MG/ML 1 ML VIAL IV PRN (12:18)
[2025-06-10] MEDS ORDERED: OSEL75CA PO (12:44)
[2025-06-10] MEDS ORDERED: ONDA-282 PO (12:45)
[2025-06-10 12:52] VITALS: O2SAT 96
[2025-06-10] MEDS: OSELTAMIVIR PHOSPHATE 75 MG CAP PO ONE (12:58)
[2025-06-10] MEDS: KETOROLAC 30 MG/ML 1 ML VIAL IV ONE (12:59)
== END 2025-06-10 13:15 | disposition home or self-care (01) ==
LOC: M ED 07:06
DX: J10.1 Influenza due to other identified influenza virus with other respiratory manifestations (principal); M32.9 Systemic lupus erythematosus, unspecified; F10.10 Alcohol abuse, uncomplicated; Z88.0 Allergy status to penicillin; Z88.2 Allergy status to sulfonamides; Z88.8 Allergy status to other drugs, medicaments and biological substances; Z91.030 Bee allergy status; Z79.899 Other long term (current) drug therapy
CPT/HCPCS: 80048; 80076; 82550; 82553; 84484; 85025; 87486; 87581; 87633; 87798; 96365; 96375; 96376; 99284; J0134; J1885; J2405